=== PATIENT | male | born 1995 | race Caucasian/White ===

== ENCOUNTER 2017-08-04 08:54 | Emergency (ER) | payer BC ==
[2017-08-04 10:09] LABS: Bilirubin Small (Negative); Blood, Urine Negative (Negative); Glucose, Urine (Dipstick) Negative (Negative); Leukocyte Negative (Negative); Nitrite Negative (Negative); Protein, Urine (Dipstick) 30 mg/dL (Neg-Trace); Urobilinogen 0.2 mg/dL (0.2-1.0)
[2017-08-04 10:16] LABS: Clarity Hazy (Clear); Specific Gravity, Urine 1.028 (1.002-1.036)
--- NOTE | 2017-08-04 10:16 | RAD ---
2 VIEWS CHEST: Date: 08/04/17 HISTORY: Fever. Body aches. FINDINGS: PA and lateral views of chest obtained. Sternotomy wires are seen. There is cardiomegaly noted. No ev idence of effusions, pneumonia, or pneumothorax seen. IMPRESSION: Cardiomegaly. POS: [facility]
[2017-08-04 10:17] LABS: Bacteria/HPF 1+ HPF (None Seen); RBC/HPF None Seen HPF (0-3); Squamous Epithelial None Seen HPF (0-3); WBC/HPF None Seen HPF (0-3)
[2017-08-04 10:18] LABS: Crystals/HPF 1+ CA OXALATE HPF (Negative)
== END 2017-08-04 10:49 | disposition home or self-care (01) ==
LOC: SCSER 08:54
DX: J11.00 Influenza due to unidentified influenza virus with unspecified type of pneumonia (principal); Z79.82 Long term (current) use of aspirin
CPT/HCPCS: 71046; 81003; 81015

== ENCOUNTER 2018-03-07 10:07 | Emergency (ER) | payer OTHER, BC ==
--- NOTE | 2018-03-07 11:42 | CT ---
CT CERVICAL SPINE NONCONTRAST: HISTORY: Back injury. FINDINGS: Vertebral body heights and alignment are maintained. Cervicothoracic junction intact. No acute frac ture or dislocation. IMPRESSION: No acute osseous abnormalities are demonstrated. POS: [facility]
--- NOTE | 2018-03-07 11:42 | CT ---
NONCONTRAST CT HEAD: DATE: 03/07/18. HISTORY: Head injury. FINDINGS: There is no evidence of a hemorrhage, acute infarction, mass effect, or midline shift. Ventricular s ystem is normal in size, shape, and position. There is opacification of an anterior right ethmoidal air cell. There is minimal mucosal thickening in each maxillary antrum. The sphenoid sinus and femoral sinuses as well as bilateral mastoid air ce lls are clear. The calvarial structures are intact, and no calvarial fracture is seen. IMPRESSION: No acute intracranial abnormality is demonstrated. POS: [facility]
== END 2018-03-07 11:40 | disposition home or self-care (01) ==
LOC: ERS 10:07
DX: S09.90XA Unspecified injury of head, initial encounter (principal); M54.2 Cervicalgia; Z79.82 Long term (current) use of aspirin; W20.8XXA Other cause of strike by thrown, projected or falling object, initial encounter; Y92.89 Other specified places as the place of occurrence of the external cause; Y99.0 Civilian activity done for income or pay
CPT/HCPCS: 70450; 72125